=== PATIENT | female | born 1995 | race Two or more races ===

== ENCOUNTER 2023-12-12 00:18 | Emergency (ER) | payer SELFPAY ==
[~2023-12-12] VITALS: Ht 154.9 cm; Wt 52.3 kg
[~2023-12-12 00:18] MED LIST: NO MEDS
[2023-12-12] MEDS: POVIDONE-IODINE 10% 15 ML SOLUTION UD TP ONE (01:25)
[2023-12-12] MEDS: CefTRIAXone 1 GM/DEXTROSE 50 ML IV ONE (01:25)
[2023-12-12] MEDS: LIDOCAINE 1% 10 ML VIAL SQ ONE (01:26)
[2023-12-12] MEDS ORDERED: CEPH-558 PO (02:07)
[2023-12-12] MEDS ORDERED: SULF-261 PO (02:07)
[2023-12-12] MEDS ORDERED: TRAM50TA5 PO (02:07)
[2023-12-12 02:55] VITALS: BP 114/68; PULSE 78; RESP 18; TEMP 98.6
== END 2023-12-12 03:20 | disposition home or self-care (01) ==
LOC: EMS 00:18
DX: N76.4 Abscess of vulva (principal); F17.210 Nicotine dependence, cigarettes, uncomplicated; Z98.890 Other specified postprocedural states
CPT/HCPCS: 99284; 56405; 96365; 87205; 87186; 87070; J0696; J3490

== ENCOUNTER → 2024-03-03 | Emergency (ER) | payer OTHER ==
[~2024-03-03] VITALS: Ht 157.5 cm; Wt 60.0 kg
[~2024-03-03] MED LIST changes: +ACET-2247 PO; +CEPH-558 PO; +ESCI20TA37 PO; +GABA600T10 PO; +SULF-261 PO; +TRAM50TA5 PO; +TRAZ-252 PO
[2024-03-03 06:23] VITALS: BP 119/60; PULSE 88; RESP 16; TEMP 98.1
[2024-03-03] MEDS: ACETAMINOPHEN 325 MG TABLET PO ONE (06:40)
[2024-03-03 06:45] LABS: BASOPHILS % (AUTO) 0.2 % (0.0-2.0); EOSINOPHILS % (AUTO) 0.5 % (1.0-6.0); HEMATOCRIT 43.5 % (36-46); HEMOGLOBIN 14.3 g/dL (12.0-16.0); LYMPHOCYTES # (AUTO) 1.3 K/uL (1.0-4.8); LYMPHOCYTES % (AUTO) 7.4 % (22.0-44.0); MEAN CORPUSCULAR HEMOGLOBIN 28.9 pg (26.0-34.0); MEAN CORPUSCULAR HGB CONC 32.8 G/dL (31.0-37.0); MEAN CORPUSCULAR VOLUME 88 fL (80-100); MONOCYTES # (AUTO) 1.1 K/uL (0.1-1.0); NEUTROPHILS # (AUTO) 15.3 K/uL (1.8-7.7); PLATELET COUNT (AUTO) 396 K/uL (150-450); RED BLOOD CELL COUNT(AUTO) 4.94 MIL/uL (4.00-5.20); RED CELL DISTRIBUTION WIDTH 14.1 % (11.5-14.5); WHITE BLOOD COUNT (AUTO) 17.8 K/uL (4.5-11.0)
[2024-03-03 06:50] LABS: NEUTROPHILS % (AUTO) 85.9 % (40.0-70.0)
[2024-03-03 06:56] LABS: ANION GAP 15 mmol/L (8-16); CALCIUM, TOTAL 8.9 mg/dL (8.8-10.5); CARBON DIOXIDE 23 mmol/L (22-29); CHLORIDE 103 mmol/L (98-107); CREATININE 0.88 mg/dL (0.60-1.30); GLOMERULAR FILTR. RATE CALC > 60 mL/min (>60); GLUCOSE,RANDOM 84 mg/dL (70-110); SODIUM SERUM 140 mmol/L (136-145); UREA NITROGEN, BLOOD 8 mg/dL (7-18)
[2024-03-03 07:01] LABS: ALCOHOL, BLOOD (SERUM) 58 mg/dL (0-10)
[2024-03-03 07:02] LABS: ALANINE AMINOTRANSFERASE 27 U/L (12-78); ALBUMIN 4.2 g/dL (3.4-5.0); ALKALINE PHOSPHATASE 73 U/L (46-116); ASPARTATE AMINOTRANSFERASE 43 U/L (15-37); BILIRUBIN,TOTAL 1.3 mg/dL (0.1-1.0); LIPASE 36 U/L (16-77); TOTAL PROTEIN, SERUM 8.1 g/dL (6.4-8.2)
[2024-03-03 07:41] LABS: APPEARANCE,URINE HAZY (CLEAR); BILIRUBIN,URINE NEGATIVE (NEGATIVE); COLOR,URINE LIGHT YELLOW (YELLOW); GLUCOSE, URINE (UA) TRACE mg/dL (NEGATIVE); KETONES,URINE TRACE mg/dL (NEGATIVE); LEUKOCYTE ESTERASE ,URINE NEGATIVE (NEGATIVE); NITRATE,URINE NEGATIVE (NEGATIVE); OCCULT BLOOD,URINE NEGATIVE (NEGATIVE); PH,URINE 5.5 (5.0-8.0); PH,URINE DRUG SCREEN 5.5 (5.0-8.0); PROTEIN,URINE 30-70 mg/dL (NEGATIVE); UROBILINOGEN,URINE <=1.0 mg/dL (<=1.0)
[2024-03-03 07:45] LABS: ALCOHOL, URINE DRUG SCREEN POSITIVE (NEGATIVE); AMPHET/METH SCREEN,URINE NEGATIVE (NEGATIVE); BARBITURATE SCREEN, URINE NEGATIVE (NEGATIVE); BENZODIAZEPINES SCREEN,URINE NEGATIVE (NEGATIVE); CANNABINOID SCREEN,URINE POSITIVE (NEGATIVE); COCAINE SCREEN,URINE NEGATIVE (NEGATIVE); METHADONE SCREEN, URINE NEGATIVE (NEGATIVE); OPIATE SCREEN,URINE NEGATIVE (NEGATIVE); PHENCYCLIDINE SCREEN,URINE NEGATIVE (NEGATIVE)
[2024-03-03 07:52] LABS: HCG,QUANTITATIVE 59 mIU/mL (0-6)
[2024-03-03 08:13] LABS: RBC,URINE 0-2 /HPF (0-2); WBC,URINE 0-2 /HPF (0-5)
[2024-03-03 08:14] LABS: SQUAMOUS EPITHELIAL CELL,UR Many /LPF (None Seen)
[2024-03-03 08:15] LABS: BACTERIA,URINE Moderate /HPF (None Seen)
[2024-03-03] MEDS: CEPHALEXIN MONOHYDRATE 500 MG CAPSULE PO ONE (09:36)
== END | disposition home or self-care (01) ==
LOC: EMS 06:15
DX: S00.83XA Contusion of other part of head, initial encounter (principal); R82.71 Bacteriuria; F17.210 Nicotine dependence, cigarettes, uncomplicated; Y04.8XXA Assault by other bodily force, initial encounter; Y93.89 Activity, other specified; Y92.89 Other specified places as the place of occurrence of the external cause; Y99.8 Other external cause status
CPT/HCPCS: 99284; 70450; 76801; 80053; 83690; 84702; 84703; 85025; 36415; 87086; 87186; 70486; 72125; 80307; 81001; G0480